=== PATIENT | female | born 1990 | race Caucasian/White ===

== ENCOUNTER 2018-05-11 23:25 | Inpatient (IN) | payer MEDICAID ==
[2018-05-12] MEDS: SOD CHLORIDE 0.9% 1,000 ML IV ×5 (00:09→15:35)
[2018-05-12 00:19] LABS: ADD MAN DIFF? NO
[2018-05-12 00:21] LABS: WHITE BLOOD COUNT 9.3 10^3/ul (4.8-10.8)
[2018-05-12 00:21] LABS: BASOPHILS % 0.3 % (0.0-2.0); EOSINOPHILS # 0.1 10^3/ul (0.0-0.5); EOSINOPHILS % 1.3 % (0.0-7.0); HEMATOCRIT 32.3 % (37.0-47.0); HEMOGLOBIN 9.6 g/dl (12.0-16.0); LYMPHOCYTES # 1.8 10^3/ul (0.8-2.9); LYMPHOCYTES % 19.3 % (15.0-51.0); MEAN CORPUSCULAR HEMOGLOBIN 20.4 pg (29.0-33.0); MEAN CORPUSCULAR HGB CONC 29.7 g/dl (32.0-37.0); MEAN CORPUSCULAR VOLUME 68.7 fl (82.0-101.0); MEAN PLATELET VOLUME 9.9 fl (7.4-10.4); MONOCYTE # 0.7 10^3/ul (0.3-0.9); MONOCYTES % 7.7 % (0.0-11.0); NEUTROPHIL # 6.6 10^3/ul (1.6-7.5); PLATELET COUNT 339 10^3/UL (140-415)
[2018-05-12] MEDS: ONDANSETRON 4 MG INJ IV ×3 (00:21→15:35)
[2018-05-12] MEDS: DEXTROSE 5%-0.45% NACL 500 ML BAG IV (00:21)
[2018-05-12 00:45] LABS: ANION GAP 12 (5-13); BLOOD UREA NITROGEN 9 mg/dl (7-20); CALCIUM 9.4 mg/dl (8.4-10.2); CARBON DIOXIDE 22 mmol/L (21-31); CHLORIDE 102 mmol/L (97-110); CREATININE 0.63 mg/dl (0.44-1.00); Estimated GFR > 60 mL/min (>60); GLUCOSE 96 mg/dl (70-220); POTASSIUM 3.6 mmol/L (3.5-5.1); SODIUM 136 mmol/L (135-144)
[2018-05-12 01:37] LABS: ADD UMIC YES; UR ASCORBIC ACID NEGATIVE (NEGATIVE); UR BILIRUBIN (Dip) NEGATIVE (NEGATIVE); UR BLOOD (Dip) NEGATIVE (NEGATIVE); UR CLARITY SLIGHTLY CLOUDY (CLEAR); UR COLOR YELLOW (YELLOW); UR GLUCOSE (Dip) 3+ mg/dL (NEGATIVE); UR KETONES (Dip) TRACE mg/dL (NEGATIVE); UR LEUKOCYTE ESTERASE (Dip) 2+ Leu/ul (NEGATIVE); UR MUCUS MANY /HPF (NONE SEEN); UR NITRITE (Dip) NEGATIVE (NEGATIVE); UR RBC 4 /HPF (0-5); UR SPECIFIC GRAVITY (Dip) 1.013 (1.003-1.030); UR SQUAMOUS EPITHELIAL CELL FEW /HPF (FEW); UR TOTAL PROTEIN (Dip) NEGATIVE (NEGATIVE); UR UROBILINOGEN (Dip) NEGATIVE (NEGATIVE); UR WBC 5 /HPF (0-5)
[2018-05-12] MEDS: DIPHENHYDRAMINE 50 MG INJ IV (02:19)
[2018-05-12] MEDS ORDERED: ACETAMINOPHEN 325 MG TAB PO ×2 (02:30→03:00)
[2018-05-12 02:55] LABS: ALANINE AMINOTRANSFERASE 27 IU/L (13-69); ALBUMIN 3.6 g/dl (3.3-4.9); ALKALINE PHOSPHATASE 45 IU/L (42-121); AMYLASE 124 U/L (11-123); ASPARTATE AMINO TRANSFERASE 19 IU/L (15-46); BILIRUBIN,INDIRECT 0.2 mg/dl (0-1.1); BILIRUBIN,TOTAL 0.2 mg/dl (0.2-1.3); TOTAL PROTEIN 6.9 g/dl (6.1-8.1)
[2018-05-12] MEDS ORDERED: NACL 0.9% 3 ML SYG IV (03:00)
[2018-05-12] MEDS ORDERED: BISACODYL (EC) 5 MG TAB PO (03:00)
[2018-05-12] MEDS ORDERED: DOCUSATE SODIUM 100 MG CAP PO (03:00)
[2018-05-12] MEDS ORDERED: CEFTRIAXONE 1 GM/50 ML (PMX) 50 ML IVPB (03:00)
[2018-05-12 03:25] LABS: THYROID STIMULATING HORMONE 0.279 MIU/L (0.465-4.680)
[2018-05-12] MEDS: PANTOPRAZOLE 40 MG INJ IV (05:44)
[2018-05-12] MEDS: PYRIDOXINE 50 MG TAB PO ×4 (05:44→20:54)
[2018-05-12] MEDS: METOCLOPRAMIDE 10 MG INJ IV ×3 (05:44→17:19)
[2018-05-12] MEDS: CEFTRIAXONE 1 GM/50 ML (PMX) 50 ML IVPB (05:44)
[2018-05-12] MEDS: HEPARIN 5,000 UNIT/1 ML VIAL SC ×3 (06:01→21:09)
[2018-05-12 11:07] LABS: IRON 26 ug/dl (35-150)
[2018-05-12 11:16] LABS: % IRON SATURATION 6 % SAT (22-52); TOTAL IRON BINDING CAPACITY 419 ug/dl (241-421)
[2018-05-12 12:42] LABS: FREE T4 (FREE THYROXINE) 1.77 ng/dl (0.79-2.35)
[2018-05-12 13:01] LABS: FERRITIN 5.4 ng/ml (6.2-137.0)
[2018-05-12] MEDS: DIPHENHYDRAMINE 25 MG CAP PO (20:54)
[2018-05-13] MEDS: METOCLOPRAMIDE 10 MG INJ IV ×5 (00:08→17:32)
[2018-05-13] MEDS: CEFTRIAXONE 1 GM/50 ML (PMX) 50 ML IVPB (04:56)
[2018-05-13 06:21] LABS: ADD MAN DIFF? NO
[2018-05-13 06:30] LABS: WHITE BLOOD COUNT 8.7 10^3/ul (4.8-10.8)
[2018-05-13 06:30] LABS: BASOPHILS % 0.5 % (0.0-2.0); EOSINOPHILS # 0.2 10^3/ul (0.0-0.5); EOSINOPHILS % 1.7 % (0.0-7.0); HEMATOCRIT 25.4 % (37.0-47.0); HEMOGLOBIN 7.6 g/dl (12.0-16.0); LYMPHOCYTES # 2.3 10^3/ul (0.8-2.9); LYMPHOCYTES % 26.6 % (15.0-51.0); MEAN CORPUSCULAR HEMOGLOBIN 20.7 pg (29.0-33.0); MEAN CORPUSCULAR HGB CONC 29.9 g/dl (32.0-37.0); MEAN CORPUSCULAR VOLUME 69.2 fl (82.0-101.0); MEAN PLATELET VOLUME 10.7 fl (7.4-10.4); MONOCYTE # 0.7 10^3/ul (0.3-0.9); MONOCYTES % 7.7 % (0.0-11.0); NEUTROPHIL # 5.5 10^3/ul (1.6-7.5); NEUTROPHILS % 63.2 % (39.0-77.0); PLATELET COUNT 265 10^3/UL (140-415); RED BLOOD COUNT 3.67 10^6/ul (4.20-5.40); RED CELL DISTRIBUTION WIDTH 20.4 % (11.5-14.5)
[2018-05-13] MEDS: PANTOPRAZOLE 40 MG INJ IV (06:40)
[2018-05-13 06:50] LABS: ALANINE AMINOTRANSFERASE 24 IU/L (13-69); ALBUMIN 2.9 g/dl (3.3-4.9); ALKALINE PHOSPHATASE 39 IU/L (42-121); ANION GAP 7 (5-13); ASPARTATE AMINO TRANSFERASE 17 IU/L (15-46); BILIRUBIN,INDIRECT 0.1 mg/dl (0-1.1); BILIRUBIN,TOTAL 0.1 mg/dl (0.2-1.3); BLOOD UREA NITROGEN 4 mg/dl (7-20); CALCIUM 8.5 mg/dl (8.4-10.2); CARBON DIOXIDE 21 mmol/L (21-31); CHLORIDE 109 mmol/L (97-110); CREATININE 0.61 mg/dl (0.44-1.00); Estimated GFR > 60 mL/min (>60); GLUCOSE 82 mg/dl (70-220); MAGNESIUM 1.6 mg/dl (1.7-2.5); POTASSIUM 3.6 mmol/L (3.5-5.1); SODIUM 137 mmol/L (135-144); TOTAL PROTEIN 5.8 g/dl (6.1-8.1)
[2018-05-13] MEDS: HEPARIN 5,000 UNIT/1 ML VIAL SC ×3 (06:51→21:52)
[2018-05-13 07:23] LABS: HEMOGLOBIN A1C 5.3 % (0-5.9)
[2018-05-13] MEDS: SOD CHLORIDE 0.9% 1,000 ML IV ×3 (08:46→17:48)
[2018-05-13] MEDS: PYRIDOXINE 50 MG TAB PO ×4 (09:29→21:34)
[2018-05-13 10:47] LABS: HEMATOCRIT 26.8 % (37.0-47.0)
[2018-05-13] MEDS ORDERED: METOCLOPRAMIDE 10 MG INJ IV (11:00)
[2018-05-13] MEDS: MAGNESIUM SULFATE 1 GM/D5W 100 ML IVPB (12:55)
[2018-05-13] MEDS: SOD FERRIC GLUC COMPLX 125 MG in SOD CHLORIDE 0.9% 100 ML IVPB (14:51)
[2018-05-13] MEDS: ONDANSETRON 4 MG INJ IV (18:58)
[2018-05-13] MEDS: DIPHENHYDRAMINE 50 MG INJ IV (21:34)
[2018-05-13] MEDS ORDERED: ONDANSETRON INJ 8 MG in SOD CHLORIDE 0.9% 50 ML IV (23:00)
[2018-05-14] MEDS: METOCLOPRAMIDE 10 MG INJ IV ×3 (00:09→11:41)
[2018-05-14] MEDS ORDERED: ONDANSETRON 4 MG INJ IV (03:00)
[2018-05-14] MEDS: CEFTRIAXONE 1 GM/50 ML (PMX) 50 ML IVPB (04:55)
[2018-05-14] MEDS: SOD CHLORIDE 0.9% 1,000 ML IV ×2 (04:55→10:10)
[2018-05-14] MEDS: DIPHENHYDRAMINE 50 MG INJ IV (06:37)
[2018-05-14] MEDS: PANTOPRAZOLE (EC) 40 MG TAB PO (06:37)
[2018-05-14] MEDS: HEPARIN 5,000 UNIT/1 ML VIAL SC (06:46)
[2018-05-14] MEDS: PYRIDOXINE 50 MG TAB PO (08:14)
[2018-05-14] MEDS: TRIMETHOBENZAMIDE 100 MG/ML VIAL IM (10:10)
[2018-05-14] MEDS: MAGNESIUM SULFATE 1 GM/D5W 100 ML IVPB (11:41)
[2018-05-14] MEDS: SOD FERRIC GLUC COMPLX 125 MG in SOD CHLORIDE 0.9% 100 ML IVPB (12:42)
== END 2018-05-14 14:00 | disposition home or self-care (01) | DRG 832 ==
LOC: E/R 23:25 → 6WM 05-12 02:29
DX: O21.0 Mild hyperemesis gravidarum (principal); O23.41 Unspecified infection of urinary tract in pregnancy, first trimester; Z3A.09 9 weeks gestation of pregnancy; B96.89 Other specified bacterial agents as the cause of diseases classified elsewhere; O99.011 Anemia complicating pregnancy, first trimester; E86.0 Dehydration
CPT/HCPCS: 36415; 76801; 80048; 80053; 80076; 81001; 81025; 82150; 82728; 83036; 83540; 83735; 84439; 84443; 84702; 85014; 85018; 85025; 87086; 93005; 96361; 96374; 96375; 99217; 99285-25; G0378

== ENCOUNTER 2018-05-27 17:28 | Emergency (ER) | payer SELFPAY, MEDICAID | END 2018-05-27 18:29 | disposition left against medical advice (07) | LOC: FTE 17:28 | DX: Z53.21 Procedure and treatment not carried out due to patient leaving prior to being seen by health care provider (principal) ==

== ENCOUNTER 2018-11-29 17:19 | Outpatient (CLI) | payer MEDICAID ==
[2018-11-29] MEDS: SOD CHLORIDE 0.9% 1,000 ML IV (20:42)
[2018-11-29] MEDS: SOD FERRIC GLUC COMPLX 125 MG in SOD CHLORIDE 0.9% 100 ML IVPB (21:07)
== END 2018-11-29 22:49 | disposition home or self-care (01) ==
LOC: OBT 17:19 → L-D 17:20 → OBT 22:49
DX: O99.013 Anemia complicating pregnancy, third trimester (principal); D64.9 Anemia, unspecified; Z3A.37 37 weeks gestation of pregnancy
CPT/HCPCS: 76818; 96361; 96365

== ENCOUNTER 2018-11-30 19:13 | Outpatient (CLI) | payer MEDICAID ==
[2018-11-30] MEDS: SOD CHLORIDE 0.9% 1,000 ML IV (20:20)
[2018-11-30] MEDS: SOD FERRIC GLUC COMPLX 125 MG in SOD CHLORIDE 0.9% 100 ML IVPB (20:58)
== END 2018-11-30 23:00 | disposition home or self-care (01) ==
LOC: OBT 19:13 → L-D 19:14 → OBT 23:00
DX: O99.013 Anemia complicating pregnancy, third trimester (principal); D64.9 Anemia, unspecified; Z3A.37 37 weeks gestation of pregnancy
CPT/HCPCS: 36415; 96360; 96361; 96367

== ENCOUNTER 2018-12-01 12:46 | Outpatient (CLI) | payer MEDICAID ==
[2018-12-01] MEDS: SOD CHLORIDE 0.9% 1,000 ML IV (13:37)
[2018-12-01] MEDS: SOD FERRIC GLUC COMPLX 125 MG in SOD CHLORIDE 0.9% 100 ML IVPB (13:57)
[2018-12-01] MEDS: CYANOCOBALAMIN 1000 MCG INJ IM (14:31)
== END 2018-12-01 14:55 | disposition home or self-care (01) ==
LOC: OBT 12:46 → L-D 12:46 → OBT 14:55
DX: O99.013 Anemia complicating pregnancy, third trimester (principal); D64.9 Anemia, unspecified; O62.9 Abnormality of forces of labor, unspecified; Z3A.37 37 weeks gestation of pregnancy
CPT/HCPCS: J2916

== ENCOUNTER 2018-12-03 23:20 | Observation (INO) | payer MEDICAID ==
[2018-12-04 00:37] LABS: ADD MAN DIFF? NO
[2018-12-04 00:40] LABS: ABNORMAL IP MESSAGE 1; BASOPHIL # 0.1 10^3/ul (0.0-0.1); BASOPHILS % 0.5 % (0.0-2.0); EOSINOPHILS # 0.2 10^3/ul (0.0-0.5); EOSINOPHILS % 1.7 % (0.0-7.0); HEMATOCRIT 23.4 % (37.0-47.0); LYMPHOCYTES # 1.5 10^3/ul (0.8-2.9); LYMPHOCYTES % 13.6 % (15.0-51.0); MEAN CORPUSCULAR HEMOGLOBIN 19.2 pg (29.0-33.0); MEAN CORPUSCULAR HGB CONC 27.4 g/dl (32.0-37.0); MEAN CORPUSCULAR VOLUME 70.1 fl (82.0-101.0); MEAN PLATELET VOLUME 9.7 fl (7.4-10.4); MONOCYTES % 9.5 % (0.0-11.0); NEUTROPHIL # 7.8 10^3/ul (1.6-7.5); NEUTROPHILS % 70.7 % (39.0-77.0); NUCLEATED RED BLOOD CELLS # 0.1 10^3/ul (0.0-0.0); NUCLEATED RED BLOOD CELLS% 1.1 /100WBC (0.0-0.0); PLATELET COUNT 260 10^3/UL (140-415); RED BLOOD COUNT 3.34 10^6/ul (4.20-5.40); RED CELL DISTRIBUTION WIDTH 21.3 % (11.5-14.5)
[2018-12-04 00:46] LABS: HEMOGLOBIN 6.4 g/dl (12.0-16.0); POSITIVE DIFF @See below
[2018-12-04 00:50] LABS: RUPTURE FETAL MEMBRANES NEGATIVE (NEGATIVE)
[2018-12-04 01:38] LABS: ADD UMIC YES; UR ASCORBIC ACID NEGATIVE (NEGATIVE); UR BACTERIA FEW /HPF (NONE SEEN); UR BILIRUBIN (Dip) NEGATIVE (NEGATIVE); UR BLOOD (Dip) NEGATIVE (NEGATIVE); UR CLARITY SLIGHTLY CLOUDY (CLEAR); UR COLOR YELLOW (YELLOW); UR GLUCOSE (Dip) NEGATIVE (NEGATIVE); UR KETONES (Dip) NEGATIVE (NEGATIVE); UR LEUKOCYTE ESTERASE (Dip) 1+ Leu/ul (NEGATIVE); UR MUCUS FEW /HPF (NONE SEEN); UR NITRITE (Dip) NEGATIVE (NEGATIVE); UR RBC 4 /HPF (0-5); UR SPECIFIC GRAVITY (Dip) 1.021 (1.003-1.030); UR SQUAMOUS EPITHELIAL CELL FEW /HPF (FEW); UR TOTAL PROTEIN (Dip) NEGATIVE (NEGATIVE); UR UROBILINOGEN (Dip) 2+ mg/dL (NEGATIVE); UR WBC 12 /HPF (0-5)
[2018-12-04] MEDS ORDERED: LACTATED RINGER'S 1,000 ML IV (03:43)
[2018-12-04] MEDS ORDERED: BUTORPHANOL 2 MG INJ IV (04:00)
[2018-12-04] MEDS ORDERED: IBUPROFEN 600 MG TAB PO (04:00)
[2018-12-04] MEDS ORDERED: MISOPROSTOL 200 MCG TAB PR (04:00)
[2018-12-04] MEDS ORDERED: LIDOCAINE 1% (MPF) 30 ML INJ INJ (04:00)
[2018-12-04] MEDS ORDERED: OXYTOCIN 30 UNITS/LR 500 ML IV ×3 (04:00)
[2018-12-04] MEDS ORDERED: CARBOPROST 250 MCG INJ IM (04:00)
[2018-12-04] MEDS ORDERED: METHYLERGONOVINE 0.2 MG INJ IM (04:00)
[2018-12-04 04:06] LABS: INR 1.06; PROTIME 13.9 Sec (11.9-14.9); PT RATIO 1.1
[2018-12-04 04:41] LABS: HEPATITIS B SURFACE ANTIGEN NEGATIVE (NEGATIVE)
[2018-12-04] MEDS: LACTATED RINGER'S 1,000 ML IV (05:22)
[2018-12-04] MEDS: AMPICILLIN 2 GM/NS (PMX) 100 ML IV (05:31)
[2018-12-04] MEDS ORDERED: DIPHENHYDRAMINE 25 MG CAP PO (07:30)
[2018-12-04] MEDS ORDERED: AMPICILLIN 1 GM/NS (PMX) 50 ML IV (08:00)
[2018-12-04 14:58] LABS: RAPID PLASMA REAGIN NONREACTIVE (NR)
== END 2018-12-04 12:30 | disposition home or self-care (01) ==
LOC: OBT 23:20 → L-D 23:20
PROVIDERS: Obstetrics & Gynecology
DX: O47.1 False labor at or after 37 completed weeks of gestation (principal); Z3A.37 37 weeks gestation of pregnancy
CPT/HCPCS: 36415; 76816; 76818; 81001; 84112; 85025; 85610; 85730; 86592; 86850; 86900; 86901; 87340; 96360; 96361; 96365; 99217

== ENCOUNTER 2019-01-13 03:32 | Emergency (ER) | payer MEDICAID ==
[2019-01-13] MEDS: ONDANSETRON 4 MG INJ IV (03:58)
[2019-01-13] MEDS: morphine 4 MG/ML VIAL IV ×2 (03:58→04:41)
[2019-01-13 04:07] LABS: ADD MAN DIFF? NO
[2019-01-13 04:11] LABS: WHITE BLOOD COUNT 7.9 10^3/ul (4.8-10.8)
[2019-01-13 04:11] LABS: ABNORMAL IP MESSAGE 1; BASOPHIL # 0.1 10^3/ul (0.0-0.1); BASOPHILS % 0.6 % (0.0-2.0); EOSINOPHILS # 0.3 10^3/ul (0.0-0.5); EOSINOPHILS % 4.3 % (0.0-7.0); HEMATOCRIT 39.7 % (37.0-47.0); HEMOGLOBIN 11.7 g/dl (12.0-16.0); LYMPHOCYTES # 2.6 10^3/ul (0.8-2.9); LYMPHOCYTES % 32.9 % (15.0-51.0); MEAN CORPUSCULAR HEMOGLOBIN 23.8 pg (29.0-33.0); MEAN CORPUSCULAR HGB CONC 29.5 g/dl (32.0-37.0); MEAN CORPUSCULAR VOLUME 80.9 fl (82.0-101.0); MEAN PLATELET VOLUME 9.9 fl (7.4-10.4); MONOCYTE # 0.7 10^3/ul (0.3-0.9); MONOCYTES % 8.9 % (0.0-11.0); NEUTROPHIL # 4.2 10^3/ul (1.6-7.5); PLATELET COUNT 297 10^3/UL (140-415); POSITIVE DIFF @See below; RED BLOOD COUNT 4.91 10^6/ul (4.20-5.40)
[2019-01-13 04:30] LABS: ANION GAP 11 (5-13); BLOOD UREA NITROGEN 13 mg/dl (7-20); CALCIUM 9.4 mg/dl (8.4-10.2); CARBON DIOXIDE 25 mmol/L (21-31); CHLORIDE 105 mmol/L (97-110); CREATININE 0.84 mg/dl (0.44-1.00); Estimated GFR > 60 mL/min (>60); GLUCOSE 89 mg/dl (70-220); POTASSIUM 3.7 mmol/L (3.5-5.1); SODIUM 141 mmol/L (135-144)
[2019-01-13 04:42] LABS: TROPONIN-I < 0.012 ng/ml (0.000-0.120)
[2019-01-13] MEDS: IOHEXOL 300MG/ML 150 ML BTL (04:54)
[2019-01-13] MEDS: SOD CHLORIDE 0.9% 100 ML (04:54)
== END 2019-01-13 06:32 | disposition home or self-care (01) ==
LOC: E/R 03:32
DX: O90.89 Other complications of the puerperium, not elsewhere classified (principal); R06.02 Shortness of breath; R07.9 Chest pain, unspecified
CPT/HCPCS: 36415; 71045; 71275; 80048; 84484; 85025; 85378; 93005; 96374; 96375; 96376; 99285-25

== ENCOUNTER 2019-01-13 14:38 | Emergency (ER) | payer MEDICAID ==
[2019-01-13 16:00] LABS: ADD MAN DIFF? NO
[2019-01-13 16:11] LABS: ABNORMAL IP MESSAGE 1; BASOPHILS % 0.4 % (0.0-2.0); EOSINOPHILS # 0.2 10^3/ul (0.0-0.5); HEMATOCRIT 37.5 % (37.0-47.0); HEMOGLOBIN 11.1 g/dl (12.0-16.0); LYMPHOCYTES # 1.1 10^3/ul (0.8-2.9); LYMPHOCYTES % 10.4 % (15.0-51.0); MEAN CORPUSCULAR HEMOGLOBIN 24.1 pg (29.0-33.0); MEAN CORPUSCULAR HGB CONC 29.6 g/dl (32.0-37.0); MEAN CORPUSCULAR VOLUME 81.3 fl (82.0-101.0); MEAN PLATELET VOLUME 10.1 fl (7.4-10.4); MONOCYTE # 0.7 10^3/ul (0.3-0.9); MONOCYTES % 6.6 % (0.0-11.0); NEUTROPHIL # 8.2 10^3/ul (1.6-7.5); NEUTROPHILS % 80.3 % (39.0-77.0); PLATELET COUNT 304 10^3/UL (140-415); RED BLOOD COUNT 4.61 10^6/ul (4.20-5.40); RED CELL DISTRIBUTION WIDTH 29.1 % (11.5-14.5)
[2019-01-13 16:11] LABS: WHITE BLOOD COUNT 10.1 10^3/ul (4.8-10.8)
[2019-01-13 16:12] LABS: POSITIVE DIFF @See below
[2019-01-13 16:21] LABS: ALANINE AMINOTRANSFERASE 119 IU/L (13-69); ALBUMIN/GLOBULIN RATIO 0.97; ALKALINE PHOSPHATASE 154 IU/L (42-121); ANION GAP 10 (5-13); ASPARTATE AMINO TRANSFERASE 105 IU/L (15-46); BILIRUBIN,INDIRECT 0.4 mg/dl (0-1.1); BILIRUBIN,TOTAL 0.4 mg/dl (0.2-1.3); BLOOD UREA NITROGEN 12 mg/dl (7-20); CALCIUM 9.1 mg/dl (8.4-10.2); CARBON DIOXIDE 25 mmol/L (21-31); CHLORIDE 106 mmol/L (97-110); CREATINE KINASE 82 IU/L (23-200); CREATININE 0.95 mg/dl (0.44-1.00); Estimated GFR > 60 mL/min (>60); GLUCOSE 82 mg/dl (70-220); POTASSIUM 3.8 mmol/L (3.5-5.1); SODIUM 141 mmol/L (135-144); TOTAL PROTEIN 8.1 g/dl (6.1-8.1)
[2019-01-13 16:32] LABS: CK INDEX 0.7; CK-MB 0.59 ng/ml (0.0-2.4); TROPONIN-I < 0.012 ng/ml (0.000-0.120)
[2019-01-13] MEDS: KETOROLAC 30 MG INJ IV (17:19)
[2019-01-13] MEDS: PANTOPRAZOLE 40 MG INJ IV (18:20)
[2019-01-13] MEDS: SOD CHLORIDE 0.9% 1,000 ML IV (18:20)
[2019-01-13 19:38] LABS: URINE BLOOD (Dip) POC 2+ (NEGATIVE); URINE GLUCOSE (Dip) POC Negative (NEGATIVE); URINE KETONES (Dip) POC Negative (NEGATIVE); URINE LEUKOCYTE EST (Dip) POC Negative (NEGATIVE); URINE NITRITE (Dip) POC Negative (NEGATIVE); URINE TOTAL PROTEIN POC 1+ (NEGATIVE)
[2019-01-13 19:38] LABS: URINE PH (Dip) POC 5.5 (5.0-8.5)
== END 2019-01-13 20:18 | disposition home or self-care (01) ==
LOC: E/R 14:38
DX: R07.9 Chest pain, unspecified (principal); D64.9 Anemia, unspecified
CPT/HCPCS: 36415; 80053; 81003; 82550; 82553; 84484; 85025; 93005; 96374; 96375; 99284-25